=== PATIENT | female | born 2000 | race Native Hawaiian/Other Pacific Islander ===

== ENCOUNTER 2021-03-03 15:29 | Emergency (ER) | payer OTHER ==
[~2021-03-03] VITALS: Ht 160 cm; Wt 74.8 kg
[2021-03-03 15:39] VITALS: TEMP 98.8
[2021-03-03 16:32] VITALS: BP 114/68
== END 2021-03-03 16:32 | disposition home or self-care (01) ==
LOC: ED 15:29
DX: J06.9 Acute upper respiratory infection, unspecified (principal); J02.9 Acute pharyngitis, unspecified; Z20.822 Contact with and (suspected) exposure to COVID-19; F17.290 Nicotine dependence, other tobacco product, uncomplicated
CPT/HCPCS: 87635; 87651; 99283; U0003